=== PATIENT | female | born 1955 | race Native Hawaiian/Other Pacific Islander ===

== ENCOUNTER 2018-08-30 08:57 | Outpatient (CLI) | payer OTHER ==
[2018-08-30 11:07] LABS: Basophils # (Auto) 0.1 K/mm3 (0.0-0.1); Basophils % (Auto) 0.9 % (0.0-1.8); Eosinophils # (Auto) 0.1 K/mm3 (0.0-0.4); Eosinophils % (Auto) 2.4 % (0.0-4.3); Hematocrit 44.7 % (30.3-42.9); Lymphocytes # (Auto) 2.3 K/mm3 (1.2-5.4); Lymphocytes % (Auto) 37.6 % (13.4-35.0); Mean Corpuscular HGB Conc 34 % (30-34); Mean Corpuscular Volume 90 fl (79-97); Monocytes # (Auto) 0.3 K/mm3 (0.0-0.8); Monocytes % (Auto) 4.4 % (0.0-7.3); Platelet Count 296 K/mm3 (140-440); Red Blood Count 4.98 M/mm3 (3.65-5.03); Red Cell Distribution Width 12.8 % (13.2-15.2)
[2018-08-30 11:27] LABS: Alanine Aminotransferase 26 units/L (7-56); Albumin 4.6 g/dL (3.9-5); BUN/Creatinine Ratio 40; Blood Urea Nitrogen 12 mg/dL (7-17); Chol/HDL Ratio 3.33 %; HDL Cholesterol 53 mg/dL (40-59); Hemolysis Index 8; LDL Cholesterol,Direct 114 mg/dL (50-130)
[2018-08-30 11:43] LABS: Erythrocyte Sedimentation Rate 6 mm/Hr (0-20)
[2018-09-04 21:57] LABS: ANA Screen, IFA Positive (Negative)
== END 2018-08-30 08:58 | disposition home or self-care (01) ==
LOC: LAB 08:57
PROVIDERS: ATTEND Internal Medicine
DX: E11.9 Type 2 diabetes mellitus without complications (principal); I10 Essential (primary) hypertension; E78.2 Mixed hyperlipidemia; M32.10 Systemic lupus erythematosus, organ or system involvement unspecified
CPT/HCPCS: 36415; 80053; 80061; 82306; 82607; 83036; 84443; 85025; 85652; 86038; 86140; 86225

== ENCOUNTER 2019-01-10 08:33 | Outpatient (CLI) | payer OTHER ==
[2019-01-10 10:38] LABS: Chol/HDL Ratio 2.8 %
== END 2019-01-10 08:34 | disposition home or self-care (01) ==
LOC: LAB 08:33
PROVIDERS: ATTEND Internal Medicine
DX: E11.9 Type 2 diabetes mellitus without complications (principal); E78.5 Hyperlipidemia, unspecified
CPT/HCPCS: 36415; 80061; 83036